=== PATIENT | female | born 1965 | race Caucasian/White ===

== ENCOUNTER 2018-04-01 09:43 | Observation (INO) ==
[2018-04-01] MEDS ORDERED: Ondansetron 4 MG/2 ML VIAL IVP ONE (09:53)
--- NOTE | 2018-04-01 09:55 | Emergency Department Note ---
Disposition Clinical Impression: Diabetic ketosis, Elevated lactic acid level, Metabolic acidosis Proteinuria Qualifiers: Proteinuria type: unspecified Qualified Code(s): R80.9 - Proteinuria, unspecified Leukocytosis Qualifiers: Leukocytosis type: unspecified Qualified Code(s): D72.829 - Elevated white blood cell count, unspecified Disposition: Admitted As Inpatient Condition: Fair Referrals: NONE,PCP [Primary Care Provider] - Forms: ED Satisfaction Letter Time of Disposition: 13:34 Abdominal Pain HPI - General Time Seen by Provider: 04/01/18 09:47 Source: patient, family, EMS Mode of arrival: EMS Limitations: no limitations Nursing Notes Reviewed: Yes Vital Signs Reviewed: Yes - History of Present Illness HPI Narrative: Patient presents to the ED via EMS and was seen and evaluated immediately upon arrival. Patient called EMS today because of hyperglycemia. States that she saw her primary care physician 2 days ago who changed her insulin regimen and also added a medication to help suppress her appetite, which family members states is strange because the patient is already very underweight. Basically since Thursday she has had fairly significant hyperglycemia, which is unusual for her. She is also been vomiting and having diffuse abdominal pain. Denies any fevers, but family states she has been hot. No chest pain or shortness of breath. No headaches or changes in vision. No known diarrhea. Unknown if she is not any urinary changes. No rashes. 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 Pain Scale: 0 - Related Data Home Medications Medication Instructions Recorded Confirmed Levothyroxine [Synthroid] 50 mcg PO QAM 06/03/15 04/01/18 Melatonin 5 mg PO HS 06/03/15 04/01/18 Metoprolol [Lopressor] 25 mg PO BID 06/03/15 04/01/18 Simvastatin [Zocor] 20 mg PO HS 06/03/15 04/01/18 Buprenorphine HCl/Naloxone HCl 1 each SL BID 06/18/15 04/01/18 [Suboxone 8 mg-2 mg Sl Film] Escitalopram [Lexapro] 10 mg PO DAILY 04/01/18 04/01/18 Gabapentin [Neurontin] 300 mg PO DAILY 04/01/18 04/01/18 Insulin ASPART [NovoLOG] 15 unit SQ TIDWM 04/01/18 04/01/18 Insulin Degludec/Liraglutide 20 unit SQ DAILY 04/01/18 04/01/18 [Xultophy 100 Unit-3.6 mg/ml] Lisinopril [Zestril] 5 mg PO DAILY 04/01/18 04/01/18 Metformin HCl [Glucophage] 1,000 mg PO BID 04/01/18 04/01/18 Omeprazole [PriLOSEC] 20 mg PO DAILY 04/01/18 04/01/18 Allergies Allergy/AdvReac Type Severity Reaction Status Date / Time codeine Allergy Hives Verified 11/04/16 10:39 ciprofloxacin [From Cipro] AdvReac Vomiting Verified 11/04/16 10:39 ibuprofen [From Motrin] AdvReac Nausea Verified 11/04/16 10:39 naproxen AdvReac Nausea Verified 11/04/16 10:39 tramadol AdvReac Vomiting Verified 11/04/16 10:39 Review of Systems: As reviewed in the HPI. All other systems reviewed are negative or normal. Abdominal Pain PMH - Past Medical History Medical history: Reports: diabetes, GERD, hyperlipidemia, hypertension Female Surgical History: Reports: , cholecystectomy Psychiatric history: Reports: anxiety, depression - Social History Smoking status: Current every day smoker Alcohol use: Reports: none Drug use: Reports: none Physical Exam - General Limitations: no limitations General appearance: alert, cachectic, other (vomiting) - Head Head exam: atraumatic, normocephalic, normal inspection - Eye Eye exam: Present: normal appearance, PERRL, EOMI - ENT ENT exam: mucous membranes dry - Chest Chest inspection: Present: normal inspection, symmetric chest wall rise - Respiratory Respiratory exam: Present: normal lung sounds bilaterally - Cardiovascular Cardiovascular exam: Present: regular rate, normal rhythm, normal heart sounds - Abdominal Exam Abdominal exam: Present: soft, Non-Tender, other (rolling around on bed, moaning c/o n/v and abd pain). Absent: tenderness, distention, guarding, rebound Abdominal tenderness: Present: epigastrium, moderate, severe - Extremities Exam Extremities exam: Present: normal inspection, full ROM. Absent: tenderness, pedal edema - Neurological Exam Neurological exam: Present: alert, oriented X3 - Psychiatric Psychiatric exam: Present: anxious - Skin Skin exam: Present: warm, dry, intact, normal color Course Course Narrative: Patient presenting with likely DKA, however, is having significant abdominal pain. It seems to be pain out of proportion. Check labs including lipase and hepatic panel, as well as DKA labs. If lactic acid is elevated. We will get a CT with IV contrast of abdomen and pelvis to rule out mesenteric ischemia - Reevaluation(s) Reevaluation #1: Patient has a significant leukocytosis and elevated lactic acid, but her VBG patient does not show acidosis. Further raises the concern over intra- abdominal pathology. Her creatinine is not back yet, but we will go ahead and order a CT with IV contrast to rule out mesenteric ischemia. Patient will be admitted to the hospital and has already received IV fluids and will continue to receive this for her HHS. 11:11 - lab called and he states that the chemistry machine is down, so we will have a delayed creatinine response. Due to the patient's presentation and elevated lactic acid, abdominal pain and vomiting. We will go ahead and proceed with CT of abdomen and pelvis with IV contrast. Time: 10:57 Reevaluation #2: Patient's renal function was normal. Her potassium was slightly low, so we will replace that before starting an insulin drip. Patient does meet some of the criteria for DKA as she does have an elevated anion gap, hyperglycemia and elevated serum and urine ketones. However, she is not acidotic and her bicarbonate is normal. We will start her on insulin drip. She was also hypochloremic, so we will use normal saline and will switch to D5 normal saline once her blood sugar drops below 250. CT of abdomen and pelvis did not show any mesenteric ischemia and likely her abdominal pain is coming from her DKA. AG is 17, delta-delta is 5. Very strange to have elevated BHB but normal bicarb and normal pH. Certainly could have a mixed picture but will treat as DKA for now. Repeat LA ordered. Vital Signs Temperature 98.5 F 04/01/18 09:46 Pulse Rate 72 04/01/18 09:46 Respiratory Rate 18 04/01/18 09:46 Blood Pressure 153/92 04/01/18 09:46 O2 Sat by Pulse Oximetry 96 04/01/18 09:46 Temperature 98.5 F 04/01/18 09:46 Pulse Rate 72 04/01/18 09:46 Respiratory Rate 18 04/01/18 09:46 Blood Pressure 153/92 04/01/18 09:46 O2 Sat by Pulse Oximetry 96 04/01/18 09:46 Oxygen Delivery Oxygen Delivery Room Air Abdominal Pain - Medical Records Medical records reviewed: Yes I reviewed the patient's medical records. - Lab Data Lab results reviewed: Yes I reviewed the patient's lab results. Result diagrams: 04/01/18 10:06 04/01/18 10:06 Lab Results 04/01/18 04/01/18 04/01/18 Range/Units 10:06 10:06 10:06 WBC 22.0 H (4.3-11.1) K/mcL RBC 5.18 H (3.82-4.97) M/mcL Hgb 17.2 H (11.5-15.4) g/dL Hct 48.3 H (35.3-44.9) % MCV 93.2 (83.0-100.0) fL MCH 33.2 (28.0-33.3) pg MCHC 35.6 H (31.6-35.5) g/dL RDW 11.8 (11.5-14.5) % Plt Count 144 (140-400) K/mcL MPV 10.7 (9.4-12.4) fL Immature Gran % 0.8 (0-4) % Seg Neutrophils % 83.2 % Lymphocytes % 11.0 % Monocytes % 4.7 % Eosinophils % 0.0 % Basophils % 0.3 % Neutrophils # 18.3 H (1.6-8.9) K/mcL Lymphocytes # 2.4 (0.6-4.6) K/mcL Monocytes # 1.0 (0.0-1.3) K/mcL Eosinophils # 0.0 (0.0-0.6) K/mcL Basophils # 0.1 (0.0-0.2) K/mcL VBG pH (7.32-7.42) pH Units VBG pCO2 (41-51) mmHg VBG pO2 (25-50) mmHg VBG HCO3 (21-27) mEq/L Sodium 136 (136-145) mEq/L Potassium 3.8 (3.5-5.1) mEq/L Chloride 96 L (98-107) mEq/L Carbon Dioxide 23 (23-29) mEq/L BUN 21 H (6-20) mg/dL Creatinine 0.65 (0.60-1.20) mg/dL Est GFR ( Amer) > 60 (> 60) Est GFR (Non-Af Amer) > 60 (> 60) BUN/Creatinine Ratio 32 H (6-26) Glucose 360 H (70-105) mg/dL Est Mean Plasma Glucose 407 mg/dl Hemoglobin A1c 15.8 H ( - 5.6) % Calculated Osmolality 300 (280-300) Lactic Acid (0.5-2.2) mmol/L Calcium 10.4 H (8.6-10.3) mg/dL Total Bilirubin 0.7 (0.3-1.0) mg/dL Direct Bilirubin 0.2 (0.0-0.2) mg/dL Indirect Bilirubin 0.5 (0.0-1.2) mg/dL AST 46 H (13-39) Units/L ALT 52 (7-52) Units/L Alkaline Phosphatase 120 H (34-104) Units/L Serum Total Protein 7.8 (6.4-8.9) g/dL Albumin 4.3 (3.5-5.7) g/dL Globulin 3.5 (2.4-3.5) g/dL Albumin/Globulin Ratio 1.2 (1.1-2.2) Lipase 10 L (11-82) Units/L Beta-Hydroxybutyric Acd (0.02-0.27) mmol/L Urine Color (Yellow) Urine Clarity (Clear) Urine pH (5.0-8.0) pH Units Ur Specific [place] (1.010-1.025) Urine Protein (Neg-Trace) mg/dL Urine Glucose (UA) (Normal) mg/dL Urine Ketones (Negative) mg/dL Urine Blood (Negative) Urine Nitrite (Negative) Urine Bilirubin (Negative) Urine Urobilinogen (Normal) mg/dL Ur Leukocyte Esterase (Negative) Urine Microscopic RBC (0-3) per hpf Urine Microscopic WBC (0-3) per hpf Ur Squamous Epith Cells (None-Few) per lpf Urine Bacteria (None-Few) per hpf Hyaline Casts (None-Few) per lpf Urine Yeast (None Seen) per hpf Ur Culture Indicated? (NO) 04/01/18 04/01/18 04/01/18 Range/Units 10:06 10:06 10:20 WBC (4.3-11.1) K/mcL RBC (3.82-4.97) M/mcL Hgb (11.5-15.4) g/dL Hct (35.3-44.9) % MCV (83.0-100.0) fL MCH (28.0-33.3) pg MCHC (31.6-35.5) g/dL RDW (11.5-14.5) % Plt Count (140-400) K/mcL MPV (9.4-12.4) fL Immature Gran % (0-4) % Seg Neutrophils % % Lymphocytes % % Monocytes % % Eosinophils % % Basophils % % Neutrophils # (1.6-8.9) K/mcL Lymphocytes # (0.6-4.6) K/mcL Monocytes # (0.0-1.3) K/mcL Eosinophils # (0.0-0.6) K/mcL Basophils # (0.0-0.2) K/mcL VBG pH 7.42 (7.32-7.42) pH Units VBG pCO2 37 L (41-51) mmHg VBG pO2 54 H (25-50) mmHg VBG HCO3 24 (21-27) mEq/L Sodium (136-145) mEq/L Potassium (3.5-5.1) mEq/L Chloride (98-107) mEq/L Carbon Dioxide (23-29) mEq/L BUN (6-20) mg/dL Creatinine (0.60-1.20) mg/dL Est GFR ( Amer) (> 60) Est GFR (Non-Af Amer) (> 60) BUN/Creatinine Ratio (6-26) Glucose (70-105) mg/dL Est Mean Plasma Glucose mg/dl Hemoglobin A1c ( - 5.6) % Calculated Osmolality (280-300) Lactic Acid 2.4 H (0.5-2.2) mmol/L Calcium (8.6-10.3) mg/dL Total Bilirubin (0.3-1.0) mg/dL Direct Bilirubin (0.0-0.2) mg/dL Indirect Bilirubin (0.0-1.2) mg/dL AST (13-39) Units/L ALT (7-52) Units/L Alkaline Phosphatase (34-104) Units/L Serum Total Protein (6.4-8.9) g/dL Albumin (3.5-5.7) g/dL Globulin (2.4-3.5) g/dL Albumin/Globulin Ratio (1.1-2.2) Lipase (11-82) Units/L Beta-Hydroxybutyric Acd > 2.00 H (0.02-0.27) mmol/L Urine Color (Yellow) Urine Clarity (Clear) Urine pH (5.0-8.0) pH Units Ur Specific [place] (1.010-1.025) Urine Protein (Neg-Trace) mg/dL Urine Glucose (UA) (Normal) mg/dL Urine Ketones (Negative) mg/dL Urine Blood (Negative) Urine Nitrite (Negative) Urine Bilirubin (Negative) Urine Urobilinogen (Normal) mg/dL Ur Leukocyte Esterase (Negative) Urine Microscopic RBC (0-3) per hpf Urine Microscopic WBC (0-3) per hpf Ur Squamous Epith Cells (None-Few) per lpf Urine Bacteria (None-Few) per hpf Hyaline Casts (None-Few) per lpf Urine Yeast (None Seen) per hpf Ur Culture Indicated? (NO) 04/01/18 Range/Units 11:00 WBC (4.3-11.1) K/mcL RBC (3.82-4.97) M/mcL Hgb (11.5-15.4) g/dL Hct (35.3-44.9) % MCV (83.0-100.0) fL MCH (28.0-33.3) pg MCHC (31.6-35.5) g/dL RDW (11.5-14.5) % Plt Count (140-400) K/mcL MPV (9.4-12.4) fL Immature Gran % (0-4) % Seg Neutrophils % % Lymphocytes % % Monocytes % % Eosinophils % % Basophils % % Neutrophils # (1.6-8.9) K/mcL Lymphocytes # (0.6-4.6) K/mcL Monocytes # (0.0-1.3) K/mcL Eosinophils # (0.0-0.6) K/mcL Basophils # (0.0-0.2) K/mcL VBG pH (7.32-7.42) pH Units VBG pCO2 (41-51) mmHg VBG pO2 (25-50) mmHg VBG HCO3 (21-27) mEq/L Sodium (136-145) mEq/L Potassium (3.5-5.1) mEq/L Chloride (98-107) mEq/L Carbon Dioxide (23-29) mEq/L BUN (6-20) mg/dL Creatinine (0.60-1.20) mg/dL Est GFR ( Amer) (> 60) Est GFR (Non-Af Amer) (> 60) BUN/Creatinine Ratio (6-26) Glucose (70-105) mg/dL Est Mean Plasma Glucose mg/dl Hemoglobin A1c ( - 5.6) % Calculated Osmolality (280-300) Lactic Acid (0.5-2.2) mmol/L Calcium (8.6-10.3) mg/dL Total Bilirubin (0.3-1.0) mg/dL Direct Bilirubin (0.0-0.2) mg/dL Indirect Bilirubin (0.0-1.2) mg/dL AST (13-39) Units/L ALT (7-52) Units/L Alkaline Phosphatase (34-104) Units/L Serum Total Protein (6.4-8.9) g/dL Albumin (3.5-5.7) g/dL Globulin (2.4-3.5) g/dL Albumin/Globulin Ratio (1.1-2.2) Lipase (11-82) Units/L Beta-Hydroxybutyric Acd (0.02-0.27) mmol/L Urine Color Yellow (Yellow) Urine Clarity Clear (Clear) Urine pH 6.0 (5.0-8.0) pH Units Ur Specific [place] > 1.030 H (1.010-1.025) Urine Protein 100 H (Neg-Trace) mg/dL Urine Glucose (UA) >=1000 H (Normal) mg/dL Urine Ketones 80 H (Negative) mg/dL Urine Blood Negative (Negative) Urine Nitrite Negative (Negative) Urine Bilirubin Negative (Negative) Urine Urobilinogen Normal (Normal) mg/dL Ur Leukocyte Esterase Negative (Negative) Urine Microscopic RBC 0-3 (0-3) per hpf Urine Microscopic WBC 3-5 H (0-3) per hpf Ur Squamous Epith Cells Many H (None-Few) per lpf Urine Bacteria None Seen (None-Few) per hpf Hyaline Casts None Seen (None-Few) per lpf Urine Yeast Few H (None Seen) per hpf Ur Culture Indicated? NO (NO) - Radiology Data Radiology results reviewed: Yes I reviewed the patient's radiology results. - EKG Data EKG attestation: Yes I reviewed and interpreted this EKG. EKG results narrative: EKG shows sinus rhythm with occasional PVC, normal rate and rhythm, normal intervals, no ischemic changes S.B.Luis A. - Rusty.Luis Situation: Demographics, MOA Background: Presenting Complaint, Relevant PMH, Meds, & Allergies Assessment: Vital Signs, Course and respsone to treatment, Exam Concerns, Patient/Family Expectation, Pertinant Lab Results, Outstanding Labs Recommendation: Barrier(s) to disposition, Recommendation based on pending studies, treatments, or consults S.B.Carlo Report Given to: Dr. Maloney accepted the patient for admission. [place] Repor Time: 14:10
[2018-04-01] MEDS ORDERED: 0.9 % Sodium Chloride 2,000 ML ONE (09:57)
[2018-04-01] MEDS: 0.9 % Sodium Chloride 1,000 ML IVC SCH ×3 (10:05→22:09)
[2018-04-01 10:23] LABS: VBG HCO3 24 mEq/L (21-27); VBG PCO2 37 mmHg (41-51); VBG PH 7.42 pH Units (7.32-7.42); VBG PO2 54 mmHg (25-50)
[2018-04-01 10:29] LABS: Basophils # 0.1 K/mcL (0.0-0.2); Basophils % 0.3 %; Hematocrit 48.3 % (35.3-44.9); Hemoglobin 17.2 g/dL (11.5-15.4); Immature Granulocytes % 0.8 % (0-4); Lymphocytes # 2.4 K/mcL (0.6-4.6); Mean Corpuscular HGB Conc 35.6 g/dL (31.6-35.5); Mean Corpuscular Hemoglobin 33.2 pg (28.0-33.3); Mean Corpuscular Volume 93.2 fL (83.0-100.0); Mean Platelet Volume 10.7 fL (9.4-12.4); Monocytes % 4.7 %; Neutrophils # 18.3 K/mcL (1.6-8.9); Platelet Count 144 K/mcL (140-400); Red Blood Count 5.18 M/mcL (3.82-4.97); Red Cell Distribution Width 11.8 % (11.5-14.5); Segmented Neutrophils % 83.2 %
--- NOTE | 2018-04-01 10:48 | Emergency Department Note ---
Disposition Clinical Impression: Diabetic ketosis, Elevated lactic acid level, Metabolic acidosis Proteinuria Qualifiers: Proteinuria type: unspecified Qualified Code(s): R80.9 - Proteinuria, unspecified Leukocytosis Qualifiers: Leukocytosis type: unspecified Qualified Code(s): D72.829 - Elevated white blood cell count, unspecified Disposition: Admitted As Inpatient Condition: Fair General Adult HPI - General Chief complaint: ED Nausea/Vomiting/Diarrhea Stated complaint: Hyperglycemia Time Seen by Provider: 04/01/18 09:47 Source: patient, EMS Limitations: no limitations - History of Present Illness Pain Scale: 0 - Related Data Home Medications Medication Instructions Recorded Confirmed Levothyroxine [Synthroid] 50 mcg PO QAM 06/03/15 04/01/18 Melatonin 5 mg PO HS 06/03/15 04/01/18 Metoprolol [Lopressor] 25 mg PO BID 06/03/15 04/01/18 Simvastatin [Zocor] 20 mg PO HS 06/03/15 04/01/18 Buprenorphine HCl/Naloxone HCl 1 each SL BID 06/18/15 04/01/18 [Suboxone 8 mg-2 mg Sl Film] Escitalopram [Lexapro] 10 mg PO DAILY 04/01/18 04/01/18 Gabapentin [Neurontin] 300 mg PO DAILY 04/01/18 04/01/18 Insulin ASPART [NovoLOG] 15 unit SQ TIDWM 04/01/18 04/01/18 Insulin Degludec/Liraglutide 20 unit SQ DAILY 04/01/18 04/01/18 [Xultophy 100 Unit-3.6 mg/ml] Lisinopril [Zestril] 5 mg PO DAILY 04/01/18 04/01/18 Metformin HCl [Glucophage] 1,000 mg PO BID 04/01/18 04/01/18 Omeprazole [PriLOSEC] 20 mg PO DAILY 04/01/18 04/01/18 Allergies Allergy/AdvReac Type Severity Reaction Status Date / Time codeine Allergy Hives Verified 11/04/16 10:39 ciprofloxacin [From Cipro] AdvReac Vomiting Verified 11/04/16 10:39 ibuprofen [From Motrin] AdvReac Nausea Verified 11/04/16 10:39 naproxen AdvReac Nausea Verified 11/04/16 10:39 tramadol AdvReac Vomiting Verified 11/04/16 10:39 Past Medical History - Past Medical History Medical history: Reports: diabetes, GERD, hyperlipidemia, hypertension Surgical history: Reports: cholecystectomy, hysterectomy Psychiatric history: Reports: anxiety, depression - Social History Smoking Status: Current every day smoker Smokeless Tobacco Status: No Alcohol use: Reports: none Drug use: Reports: none Physical Exam - General Limitations: no limitations General appearance: alert, in no apparent distress Course Vital Signs Temperature 98.5 F 04/01/18 09:46 Pulse Rate 72 04/01/18 09:46 Respiratory Rate 18 04/01/18 09:46 Blood Pressure 153/92 04/01/18 09:46 O2 Sat by Pulse Oximetry 96 04/01/18 09:46 Temperature 98.9 F 04/01/18 15:52 Pulse Rate 68 04/01/18 15:52 Respiratory Rate 16 04/01/18 15:52 Blood Pressure 143/69 04/01/18 15:52 O2 Sat by Pulse Oximetry 95 04/01/18 15:52 Oxygen Delivery Oxygen Delivery Room Air Medical Decision Making - Lab Data Result diagrams: 04/01/18 10:06 04/01/18 17:44 Lab Results 04/01/18 04/01/18 04/01/18 Range/Units 10:06 10:06 10:06 WBC 22.0 H (4.3-11.1) K/mcL RBC 5.18 H (3.82-4.97) M/mcL Hgb 17.2 H (11.5-15.4) g/dL Hct 48.3 H (35.3-44.9) % MCV 93.2 (83.0-100.0) fL MCH 33.2 (28.0-33.3) pg MCHC 35.6 H (31.6-35.5) g/dL RDW 11.8 (11.5-14.5) % Plt Count 144 (140-400) K/mcL MPV 10.7 (9.4-12.4) fL Immature Gran % 0.8 (0-4) % Seg Neutrophils % 83.2 % Lymphocytes % 11.0 % Monocytes % 4.7 % Eosinophils % 0.0 % Basophils % 0.3 % Neutrophils # 18.3 H (1.6-8.9) K/mcL Lymphocytes # 2.4 (0.6-4.6) K/mcL Monocytes # 1.0 (0.0-1.3) K/mcL Eosinophils # 0.0 (0.0-0.6) K/mcL Basophils # 0.1 (0.0-0.2) K/mcL VBG pH (7.32-7.42) pH Units VBG pCO2 (41-51) mmHg VBG pO2 (25-50) mmHg VBG HCO3 (21-27) mEq/L Sodium 136 (136-145) mEq/L Potassium 3.8 (3.5-5.1) mEq/L Chloride 96 L (98-107) mEq/L Carbon Dioxide 23 (23-29) mEq/L BUN 21 H (6-20) mg/dL Creatinine 0.65 (0.60-1.20) mg/dL Est GFR ( Amer) > 60 (> 60) Est GFR (Non-Af Amer) > 60 (> 60) BUN/Creatinine Ratio 32 H (6-26) Glucose 360 H (70-105) mg/dL Est Mean Plasma Glucose 407 mg/dl Hemoglobin A1c 15.8 H ( - 5.6) % Serum Osmolality (280-300) mOsm/kg Calculated Osmolality 300 (280-300) Lactic Acid (0.5-2.2) mmol/L Calcium 10.4 H (8.6-10.3) mg/dL Total Bilirubin 0.7 (0.3-1.0) mg/dL Direct Bilirubin 0.2 (0.0-0.2) mg/dL Indirect Bilirubin 0.5 (0.0-1.2) mg/dL AST 46 H (13-39) Units/L ALT 52 (7-52) Units/L Alkaline Phosphatase 120 H (34-104) Units/L Serum Total Protein 7.8 (6.4-8.9) g/dL Albumin 4.3 (3.5-5.7) g/dL Globulin 3.5 (2.4-3.5) g/dL Albumin/Globulin Ratio 1.2 (1.1-2.2) Lipase 10 L (11-82) Units/L Beta-Hydroxybutyric Acd (0.02-0.27) mmol/L Urine Color (Yellow) Urine Clarity (Clear) Urine pH (5.0-8.0) pH Units Ur Specific [place] (1.010-1.025) Urine Protein (Neg-Trace) mg/dL Urine Glucose (UA) (Normal) mg/dL Urine Ketones (Negative) mg/dL Urine Blood (Negative) Urine Nitrite (Negative) Urine Bilirubin (Negative) Urine Urobilinogen (Normal) mg/dL Ur Leukocyte Esterase (Negative) Urine Microscopic RBC (0-3) per hpf Urine Microscopic WBC (0-3) per hpf Ur Squamous Epith Cells (None-Few) per lpf Urine Bacteria (None-Few) per hpf Hyaline Casts (None-Few) per lpf Urine Yeast (None Seen) per hpf Ur Culture Indicated? (NO) 04/01/18 04/01/18 04/01/18 Range/Units 10:06 10:06 10:06 WBC (4.3-11.1) K/mcL RBC (3.82-4.97) M/mcL Hgb (11.5-15.4) g/dL Hct (35.3-44.9) % MCV (83.0-100.0) fL MCH (28.0-33.3) pg MCHC (31.6-35.5) g/dL RDW (11.5-14.5) % Plt Count (140-400) K/mcL MPV (9.4-12.4) fL Immature Gran % (0-4) % Seg Neutrophils % % Lymphocytes % % Monocytes % % Eosinophils % % Basophils % % Neutrophils # (1.6-8.9) K/mcL Lymphocytes # (0.6-4.6) K/mcL Monocytes # (0.0-1.3) K/mcL Eosinophils # (0.0-0.6) K/mcL Basophils # (0.0-0.2) K/mcL VBG pH (7.32-7.42) pH Units VBG pCO2 (41-51) mmHg VBG pO2 (25-50) mmHg VBG HCO3 (21-27) mEq/L Sodium (136-145) mEq/L Potassium (3.5-5.1) mEq/L Chloride (98-107) mEq/L Carbon Dioxide (23-29) mEq/L BUN (6-20) mg/dL Creatinine (0.60-1.20) mg/dL Est GFR ( Amer) (> 60) Est GFR (Non-Af Amer) (> 60) BUN/Creatinine Ratio (6-26) Glucose (70-105) mg/dL Est Mean Plasma Glucose mg/dl Hemoglobin A1c ( - 5.6) % Serum Osmolality 314 H (280-300) mOsm/kg Calculated Osmolality (280-300) Lactic Acid 2.4 H (0.5-2.2) mmol/L Calcium (8.6-10.3) mg/dL Total Bilirubin (0.3-1.0) mg/dL Direct Bilirubin (0.0-0.2) mg/dL Indirect Bilirubin (0.0-1.2) mg/dL AST (13-39) Units/L ALT (7-52) Units/L Alkaline Phosphatase (34-104) Units/L Serum Total Protein (6.4-8.9) g/dL Albumin (3.5-5.7) g/dL Globulin (2.4-3.5) g/dL Albumin/Globulin Ratio (1.1-2.2) Lipase (11-82) Units/L Beta-Hydroxybutyric Acd > 2.00 H (0.02-0.27) mmol/L Urine Color (Yellow) Urine Clarity (Clear) Urine pH (5.0-8.0) pH Units Ur Specific [place] (1.010-1.025) Urine Protein (Neg-Trace) mg/dL Urine Glucose (UA) (Normal) mg/dL Urine Ketones (Negative) mg/dL Urine Blood (Negative) Urine Nitrite (Negative) Urine Bilirubin (Negative) Urine Urobilinogen (Normal) mg/dL Ur Leukocyte Esterase (Negative) Urine Microscopic RBC (0-3) per hpf Urine Microscopic WBC (0-3) per hpf Ur Squamous Epith Cells (None-Few) per lpf Urine Bacteria (None-Few) per hpf Hyaline Casts (None-Few) per lpf Urine Yeast (None Seen) per hpf Ur Culture Indicated? (NO) 04/01/18 04/01/18 04/01/18 Range/Units 10:20 11:00 14:01 WBC (4.3-11.1) K/mcL RBC (3.82-4.97) M/mcL Hgb (11.5-15.4) g/dL Hct (35.3-44.9) % MCV (83.0-100.0) fL MCH (28.0-33.3) pg MCHC (31.6-35.5) g/dL RDW (11.5-14.5) % Plt Count (140-400) K/mcL MPV (9.4-12.4) fL Immature Gran % (0-4) % Seg Neutrophils % % Lymphocytes % % Monocytes % % Eosinophils % % Basophils % % Neutrophils # (1.6-8.9) K/mcL Lymphocytes # (0.6-4.6) K/mcL Monocytes # (0.0-1.3) K/mcL Eosinophils # (0.0-0.6) K/mcL Basophils # (0.0-0.2) K/mcL VBG pH 7.42 (7.32-7.42) pH Units VBG pCO2 37 L (41-51) mmHg VBG pO2 54 H (25-50) mmHg VBG HCO3 24 (21-27) mEq/L Sodium (136-145) mEq/L Potassium (3.5-5.1) mEq/L Chloride (98-107) mEq/L Carbon Dioxide (23-29) mEq/L BUN (6-20) mg/dL Creatinine (0.60-1.20) mg/dL Est GFR ( Amer) (> 60) Est GFR (Non-Af Amer) (> 60) BUN/Creatinine Ratio (6-26) Glucose (70-105) mg/dL Est Mean Plasma Glucose mg/dl Hemoglobin A1c ( - 5.6) % Serum Osmolality (280-300) mOsm/kg Calculated Osmolality (280-300) Lactic Acid 1.0 (0.5-2.2) mmol/L Calcium (8.6-10.3) mg/dL Total Bilirubin (0.3-1.0) mg/dL Direct Bilirubin (0.0-0.2) mg/dL Indirect Bilirubin (0.0-1.2) mg/dL AST (13-39) Units/L ALT (7-52) Units/L Alkaline Phosphatase (34-104) Units/L Serum Total Protein (6.4-8.9) g/dL Albumin (3.5-5.7) g/dL Globulin (2.4-3.5) g/dL Albumin/Globulin Ratio (1.1-2.2) Lipase (11-82) Units/L Beta-Hydroxybutyric Acd (0.02-0.27) mmol/L Urine Color Yellow (Yellow) Urine Clarity Clear (Clear) Urine pH 6.0 (5.0-8.0) pH Units Ur Specific Glade > 1.030 H (1.010-1.025) Urine Protein 100 H (Neg-Trace) mg/dL Urine Glucose (UA) >=1000 H (Normal) mg/dL Urine Ketones 80 H (Negative) mg/dL Urine Blood Negative (Negative) Urine Nitrite Negative (Negative) Urine Bilirubin Negative (Negative) Urine Urobilinogen Normal (Normal) mg/dL Ur Leukocyte Esterase Negative (Negative) Urine Microscopic RBC 0-3 (0-3) per hpf Urine Microscopic WBC 3-5 H (0-3) per hpf Ur Squamous Epith Cells Many H (None-Few) per lpf Urine Bacteria None Seen (None-Few) per hpf Hyaline Casts None Seen (None-Few) per lpf Urine Yeast Few H (None Seen) per hpf Ur Culture Indicated? NO (NO) Attestation Statement - Attestation Attestation: I examined this patient and my medical decision-making was reviewed with the [employer]PER/PA/Advanced Practice Nurse/Resident Physician. I agree with the documented findings, disposition and treatment plan as described except to the extent set forth below. I did see the patient is spoke with her and examined her and she does have abdominal pain for the last several days. It is generalized. Did have pain even with rolling over in bed. On my exam the abdomen is soft with minimal generalized discomfort but subjectively she has more discomfort. Blood sugar elevated at home but she does not know exact number. No confusion. Social history: Is here with her sister. Does have significant leukocytosis and elevated lactate and electrolytes as well as blood sugar and liver function tests are pending. Abdominal imaging will be ordered after creatinine result returns. 1048 I did review the EKG showing normal sinus rhythm with a rate of 81 without acute ischemic change 1054
[2018-04-01] MEDS ORDERED: Isovue-370 500 ML INFUS..BTL IV ONE (10:50)
[2018-04-01] MEDS ORDERED: 0.9 % Sodium Chloride 1,000 ML IVC ONE (11:02)
[2018-04-01 11:19] LABS: Estimated Average Glucose 407 mg/dl; Hemoglobin A1C 15.8 %
[2018-04-01 11:31] LABS: Bilirubin,Urine Negative (Negative); Blood,Urine Negative (Negative); Clarity,Urine Clear (Clear); Color,Urine Yellow (Yellow); Glucose,Urine (UA) >=1000 mg/dL (Normal); Ketones,Urine 80 mg/dL (Negative); Leukocyte Esterase,Urine Negative (Negative); Nitrite,Urine Negative (Negative); Protein,Urine 100 mg/dL (Neg-Trace); Specific Gravity,Urine > 1.030 (1.010-1.025); Urobilinogen,Urine Normal (Normal)
[2018-04-01 11:32] LABS: Bacteria,Urine None Seen per hpf (None-Few); Hyaline Casts,Urine None Seen per lpf (None-Few); RBC,Urine 0-3 per hpf (0-3); Squamous Epithelial Cell,Urine Many per lpf (None-Few)
[2018-04-01 11:48] LABS: Yeast,Urine Few per hpf (None Seen)
[2018-04-01 11:56] LABS: Alanine Aminotransferase 52 Units/L (7-52); Albumin 4.3 g/dL (3.5-5.7); Albumin/Globulin Ratio 1.2 (1.1-2.2); Aspartate Amino Transferase 46 Units/L (13-39); Bilirubin,Direct 0.2 mg/dL (0.0-0.2); Bilirubin,Indirect 0.5 mg/dL (0.0-1.2); Bilirubin,Total 0.7 mg/dL (0.3-1.0); Blood Urea Nitrogen 21 mg/dL (6-20); Calcium 10.4 mg/dL (8.6-10.3); Carbon Dioxide 23 mEq/L (23-29); Chloride 96 mEq/L (98-107); Globulin 3.5 g/dL (2.4-3.5); Glucose 360 mg/dL (70-105); Osmolality,Calculated 300 (280-300); Potassium 3.8 mEq/L (3.5-5.1); Sodium 136 mEq/L (136-145); Total Protein 7.8 g/dL (6.4-8.9)
[2018-04-01] MEDS ORDERED: *HR* Promethazine 25 MG/ML VIAL IVP ONE (12:19)
[2018-04-01] MEDS ORDERED: *HR* Promethazine 25 MG/ML VIAL ONE (12:20)
[2018-04-01 12:27] LABS: Alkaline Phosphatase 120 Units/L (34-104); BUN/Creatinine Ratio 32 (6-26); eGFR For African Americans > 60 (> 60); eGFR For Non-African Americans > 60 (> 60)
[2018-04-01 12:28] LABS: Lipase 10 Units/L (11-82)
[2018-04-01] MEDS ORDERED: Potassium Chloride 40 MEQ, Lidocaine 1% 2 ML in D5% in Water 500 ML IVPB ONE (13:10)
[2018-04-01] MEDS ORDERED: *HR* Dextrose 50 % in Water (Syg) 50 ML SYRINGE IVP PRN ×2 (13:11→17:18)
[2018-04-01] MEDS ORDERED: 0.9 % Sodium Chloride w KCl 20 MEQ/1,000 ML MLS IVC SCH ×3 (13:15→17:30)
[2018-04-01] MEDS ORDERED: D5% in 0.9% NACL w KCl 20 MEQ/1,000 ML MLS IVC SCH (13:15)
[2018-04-01] MEDS ORDERED: Insulin Human Regular 100 UNIT in 0.9 % Sodium Chloride 100 ML IVC SCH ×2 (13:15→17:30)
[2018-04-01] MEDS ORDERED: Naloxone 0.4 MG/ML INJ IVP PRN (15:28)
--- NOTE | 2018-04-01 16:55 | Internal Med History&Physical ---
<Hao Brown - Last Filed: 04/01/18 17:55> Date of Encounter: 04/01/18 Time of Encounter: 16:43 Internal Medicine - H&P: HPI Chief complaint: abdominal pain Admitted From: Emergency Dept Plans for Post Hospital Care: Home History of present illness: Ms. Mathews is a 52 year old female, with past medical history of diabetes, who presents today complaining of diffuse abdominal pain and headache. Pt rates both MARAVILLA pain and abd pain as 9/10. Pt states abd and MARAVILLA started yesterday around the same time and were originally an 8/10. MARAVILLA made worse by light. Pain accompanied by vomiting, diarrhea, and painful urination. Denied any hematemesis , melena, hematochezia, or hematuria. Denies any chest pain or shortness of breath. 2 weeks ago pt was seen by a provider at [facility] who increased pt's insulin regimen to Novolog 15 units TID with meals, and added Xultophy as well. Reported pt has not seen a provider previous to that visit in quite some time due to pt substance abuse and suboxone. Past Med Surg Social Fam HX - Past Medical History Medical history: diabetes, GERD, hyperlipidemia, hypertension Additional medical history: liver problems Psychiatric history: anxiety, depression - Past Surgical History Surgical History: , cholecystectomy, hysterectomy Additional surgical history: tubal ligation, rt foot surgery - Social History Smoking Status: Current every day smoker Packs per day: 1/2 Smokeless Tobacco Status: No Alcohol use: none Drug use: none Current living situation: Home - Independent Activity Level: Independent ambulation - Family History Mother Cause of : Pancreatic Cancer Father Cause of : Staph bacteremia Hx Family Cardiac Disorders: Yes Hx Family Endocrine Disorder: Yes (diabetes ) Sister Hx Family Cardiac Disorders: Yes (CHF) Hx Family Respiratory Disorders: Yes (COPD) Internal Medicine - H&P: Meds Levothyroxine [Synthroid] 50 mcg PO QAM 06/03/15 [History] Melatonin 5 mg PO HS 06/03/15 [History] Metoprolol [Lopressor] 25 mg PO BID 06/03/15 [History] Simvastatin [Zocor] 20 mg PO HS 06/03/15 [History] Buprenorphine HCl/Naloxone HCl [Suboxone 8 mg-2 mg Sl Film] 1 each SL BID [History] Escitalopram [Lexapro] 10 mg PO DAILY 04/01/18 [History] Gabapentin [Neurontin] 300 mg PO DAILY 04/01/18 [History] Insulin ASPART [NovoLOG] 15 unit SQ TIDWM 04/01/18 [History] Insulin Degludec/Liraglutide [Xultophy 100 Unit-3.6 mg/ml] 20 unit SQ DAILY 02/12 [History] Lisinopril [Zestril] 5 mg PO DAILY 04/01/18 [History] Metformin HCl [Glucophage] 1,000 mg PO BID 04/01/18 [History] Omeprazole [PriLOSEC] 20 mg PO DAILY 04/01/18 [History] 3 Allergy/AdvReac Type Severity Reaction Status Date / Time codeine Allergy Hives Verified 11/04/16 10:39 ciprofloxacin [From Cipro] AdvReac Vomiting Verified 11/04/16 10:39 ibuprofen [From Motrin] AdvReac Nausea Verified 11/04/16 10:39 naproxen AdvReac Nausea Verified 11/04/16 10:39 tramadol AdvReac Vomiting Verified 11/04/16 10:39 All Systems PM: A 10-system review of systems was performed and is negative for pertinent findings except as documented above in the HPI. - Constitutional Constitutional: chills, fatigue, fever(s) - EENT Eyes: no blurry vision, no change in vision, no pain Ears: no decreased hearing, no ear pain, no tinnitus Nose, mouth and throat: dry mouth, no bleeding gums, no mouth lesions, no neck mass, no neck pain, no sinus pain, no sore throat - Cardiovascular Cardiovascular ROS IM: edema, no chest pain, no dyspnea, no dyspnea on exertion , no palpitations - Respiratory Respiratory: no cough, no dyspnea, no hemoptysis, no dyspnea on exertion, no wheezing - Gastrointestinal Gastrointestinal: abdominal pain, diarrhea, nausea, vomiting, no hematemesis, no hematochezia, no melena - Genitourinary Genitourinary: dysuria, urinary frequency, no flank pain, no hematuria, no urinary hesitancy, no urinary incontinence - Musculoskeletal Musculoskeletal ROS IM: no arthralgias, no back pain, no joint swelling, no numbness, no tingling - Integumentary Integumentary IM: no erythema, no new lesions, no rash, no unusual bruising - Neurological Neurological ROS: headache(s), no dizziness, no numbness, no vertigo, no weakness - Endocrine Endocrine IM: fatigue, polydipsia, polyphagia, polyuria - Hematologic/Lymphatic Hematologic/Lymphatic: no easy bleeding, no easy bruising, no lymphadenopathy - Constitutional Vitals: Temp Pulse Resp BP Pulse Ox 98.9 F 68 16 143/69 95 04/01/18 15:52 04/01/18 15:52 04/01/18 15:52 04/01/18 15:52 04/01/18 15:52 General appearance: Present: A&O X 3, severe distress, answers questions appropriately Exam: Head: Normocephalic and atraumatic Eyes: PERRL, EOMI, conjunctivae pink, sclerae anicteric Neck: supple, trachea midline, no masses Heart: RRR, +S1, +S2, no murmurs, clicks or rubs noted Lungs: Wheezes noted diffusely, unlabored breathing. No rales, or rhonchi. GI: Abdomen soft, non-distended, diffusely tender to palpation, normoactive bowel sounds. Extremities: Warm, pulses palpable and symmetrical. No edema or cyanosis noted. Neuro: Alert and oriented 3, no focal deficits, no speech difficulty. Skin: Warm, dry, intact. Internal Med - H&P Results - Labs CBC & Chem 7: 04/01/18 10:06 04/01/18 10:06 - Assessment and plan (1) DKA (diabetic ketoacidoses) Current Visit: Yes Status: Acute Assessment and plan: Fluid resuscitation for hypovolemia Insulin drip until anion gap closes Monitor potassium closely and replace as needed Qualifiers: Diabetes mellitus type: type 2 Diabetes mellitus complication detail: without coma Qualified Code(s): E11.10 - Type 2 diabetes mellitus with ketoacidosis without coma (2) Abdominal pain Current Visit: Yes Status: Acute Assessment and plan: likely secondary to DKA, vomiting and diarrhea Tylenol or ibuprofen prn for pain Qualifiers: Abdominal location: generalized Qualified Code(s): R10.84 - Generalized abdominal pain (3) Hypothyroidism Current Visit: Yes Status: Acute Assessment and plan: Continue home synthroid Qualifiers: Hypothyroidism type: unspecified Qualified Code(s): E03.9 - Hypothyroidism , unspecified (4) HTN (hypertension) Current Visit: Yes Status: Acute Assessment and plan: BP currently in 140s systolic Continue to monitor as fluid resuscitation progresses Continue home meds Qualifiers: Hypertension type: essential hypertension Qualified Code(s): I10 - Essential (primary) hypertension (5) DVT prophylaxis Current Visit: Yes Status: Acute Assessment and plan: heparin drip - Time Spent With Patient Total time spent is greater than 50% in coordination of care (as documented) at patient's floor/unit and/or counseling patient: <Emanuel Mars - Last Filed: 04/01/18 19:45> Date of Encounter: 04/01/18 Internal Medicine - H&P: HPI History of present illness: Ms. Mathews is a 52 year old female All Systems PM: A 10-system review of systems was performed and is negative for pertinent findings except as documented above in the HPI. - Constitutional Vitals: Temp Pulse Resp BP Pulse Ox 98.8 F 71 16 135/71 96 04/01/18 19:08 04/01/18 19:08 04/01/18 19:08 04/01/18 19:08 04/01/18 19:08 Internal Med - H&P Results - Labs CBC & Chem 7: 04/01/18 10:06 04/01/18 17:44 Labs: BMP 04/01/18 17:44 Sodium 132 L Potassium 4.0 Chloride 101 Carbon Dioxide 21 L BUN 14 Creatinine 0.54 L Glucose 306 H Calcium 9.0 - Attending Attestation I examined this patient and my medical decision-making was reviewed with the Resident Physician on 04/01/18. I agree with the documented findings, disposition and treatment plan as described except to the extent set forth below. Ms Mathews presented to ED with complaints of abd pain with nausea and vomiting and diarrhea for 2 days. No fever. Some cough. Symptoms related to change in her insulin. Currently she is uncomfortable. She does not answer questions well. Exam alert Mucus membranes dry Heart reg Wheeze heard Abd soft and diffusely tender without peritoneal signs No edema I/P 1. DKA 2. Dehydration Further diagnoses and plan as above. - Assessment and plan (1) DKA (diabetic ketoacidoses) Current Visit: Yes Status: Acute Qualifiers: Diabetes mellitus type: type 2 Diabetes mellitus complication detail: without coma Qualified Code(s): E11.10 - Type 2 diabetes mellitus with ketoacidosis without coma (2) Abdominal pain Current Visit: Yes Status: Acute Qualifiers: Abdominal location: generalized Qualified Code(s): R10.84 - Generalized abdominal pain (3) Hypothyroidism Current Visit: Yes Status: Acute Qualifiers: Hypothyroidism type: acquired Qualified Code(s): E03.9 - Hypothyroidism, unspecified (4) HTN (hypertension) Current Visit: Yes Status: Acute Qualifiers: Hypertension type: essential hypertension Qualified Code(s): I10 - Essential (primary) hypertension (5) DVT prophylaxis Current Visit: Yes Status: Acute - Time Spent With Patient Total time spent is greater than 50% in coordination of care (as documented) at patient's floor/unit and/or counseling patient:
[2018-04-01] MEDS ORDERED: Ringers Solution, Lactated 1,000 ML IVC ONE ×2 (17:11→17:12)
[2018-04-01] MEDS ORDERED: Ringers Solution, Lactated 1,000 ML ONE (17:16)
[2018-04-01] MEDS ORDERED: D5% in 0.45% NACL 1,000 ML IVC PRN (17:18)
[2018-04-01] MEDS ORDERED: D5% in 0.45% NACL w KCl 20 MEQ/1,000 ML MLS IVC PRN (17:18)
[2018-04-01] MEDS ORDERED: 0.9 % Sodium Chloride 1,000 ML IVC SCH (17:30)
[2018-04-01] MEDS ORDERED: 0.9 % Sodium Chloride w KCl 20 MEQ/1,000 ML MLS IVC PRN (18:09)
[2018-04-01] MEDS: Gabapentin 300 MG CAPSULE PO SCH (18:14)
[2018-04-01] MEDS: *HR* Heparin 5,000 UNIT/ML VIAL SQ SCH (18:14)
[2018-04-01 18:16] LABS: BUN/Creatinine Ratio 26 (6-26); Blood Urea Nitrogen 14 mg/dL (6-20); Carbon Dioxide 21 mEq/L (23-29); Chloride 101 mEq/L (98-107); Glucose 306 mg/dL (70-105); Osmolality,Calculated 286 (280-300); Sodium 132 mEq/L (136-145); eGFR For African Americans > 60 (> 60); eGFR For Non-African Americans > 60 (> 60)
[2018-04-01] MEDS ORDERED: Acetaminophen 325 MG TABLET PO PRN (18:38)
[2018-04-01] MEDS ORDERED: Ondansetron 4 MG/2 ML VIAL IVP PRN ×2 (18:41→23:45)
[2018-04-01 20:12] LABS: BUN/Creatinine Ratio 23 (6-26); Blood Urea Nitrogen 11 mg/dL (6-20); Calcium 8.9 mg/dL (8.6-10.3); Carbon Dioxide 21 mEq/L (23-29); Chloride 103 mEq/L (98-107); Glucose 262 mg/dL (70-105); Osmolality,Calculated 284 (280-300); Potassium 4.8 mEq/L (3.5-5.1); Sodium 133 mEq/L (136-145); eGFR For African Americans > 60 (> 60); eGFR For Non-African Americans > 60 (> 60)
[2018-04-01] MEDS ORDERED: *HR* Promethazine 25 MG/ML VIAL IVP PRN (20:46)
[2018-04-01] MEDS ORDERED: Melatonin 3 MG TABLET PO SCH (21:00)
[2018-04-01] MEDS ORDERED: Ketorolac 15 MG/ML VIAL IVP ONE (22:02)
[2018-04-01 22:15] LABS: BUN/Creatinine Ratio 22 (6-26); Blood Urea Nitrogen 10 mg/dL (6-20); Calcium 8.6 mg/dL (8.6-10.3); Carbon Dioxide 23 mEq/L (23-29); Chloride 104 mEq/L (98-107); Glucose 202 mg/dL (70-105); Osmolality,Calculated 283 (280-300); Potassium 3.7 mEq/L (3.5-5.1); Sodium 134 mEq/L (136-145); eGFR For African Americans > 60 (> 60); eGFR For Non-African Americans > 60 (> 60)
--- NOTE | 2018-04-01 23:35 | Electrocardiograph Report ---
[place] [facility] Test Date: 2018-04-01 Pat Name: Cheli Mathews Department: 104 Room: 2N11 Gender: F [employer] Super[employer]: HEIDY : 1965 Requested By: [id number] Order Number: [id number] Reading MD: Salma Huff Measurements Intervals [place] Rate: 81 P: 51 DC: 159 QRS: 19 QRSD: 105 T: 51 QT: 406 QTc: 443 Interpretive Statements SINUS RHYTHM WITH OCCASIONAL VENTRICULAR PREMATURE COMPLEXES WARNING: DATA QUALITY MAY AFFECT INTERPRETATION Electronically Signed On 04-01-2018 23:33:37 EDT by Salma Huff
[2018-04-01] MEDS: *HR* Buprenorphine HCl 8 MG TAB.SUBL SL SCH (23:48)
[2018-04-02 00:18] LABS: BUN/Creatinine Ratio 21 (6-26); Blood Urea Nitrogen 10 mg/dL (6-20); Calcium 8.6 mg/dL (8.6-10.3); Carbon Dioxide 18 mEq/L (23-29); Chloride 104 mEq/L (98-107); Glucose 203 mg/dL (70-105); Osmolality,Calculated 283 (280-300); Potassium 4.4 mEq/L (3.5-5.1); Sodium 134 mEq/L (136-145); eGFR For African Americans > 60 (> 60); eGFR For Non-African Americans > 60 (> 60)
[2018-04-02] MEDS ORDERED: Dextrose Gel 15 GM/37.5 ML TUBE PO PRN ×4 (01:01→16:22)
[2018-04-02] MEDS ORDERED: D5% in Water 1,000 ML IVC PRN ×2 (01:01→16:22)
[2018-04-02] MEDS ORDERED: Insulin DETEMIR 100 UNIT/ML X5UNITS SQ SCH (01:15)
[2018-04-02] MEDS ORDERED: 0.9 % Sodium Chloride 1,000 ML IVC SCH (01:15)
[2018-04-02] MEDS: Metoclopramide 10 MG/2 ML VIAL IVP PRN ×2 (01:56→08:16)
[2018-04-02] MEDS: *HR* Heparin 5,000 UNIT/ML VIAL SQ SCH ×2 (06:13→17:24)
[2018-04-02 06:28] LABS: Basophils % 0.2 %; Eosinophils % 0.1 %; Hematocrit 40.6 % (35.3-44.9); Immature Granulocytes % 0.6 % (0-4); Lymphocytes # 3.5 K/mcL (0.6-4.6); Lymphocytes % 22.9 %; Mean Corpuscular HGB Conc 34.5 g/dL (31.6-35.5); Mean Corpuscular Volume 92.9 fL (83.0-100.0); Monocytes # 0.8 K/mcL (0.0-1.3); Neutrophils # 10.9 K/mcL (1.6-8.9); Platelet Count 124 K/mcL (140-400); Red Blood Count 4.37 M/mcL (3.82-4.97); Segmented Neutrophils % 71.2 %
[2018-04-02 06:48] LABS: BUN/Creatinine Ratio 21 (6-26); Blood Urea Nitrogen 9 mg/dL (6-20); Calcium 8.8 mg/dL (8.6-10.3); Carbon Dioxide 20 mEq/L (23-29); Chloride 106 mEq/L (98-107); Glucose 200 mg/dL (70-105); Osmolality,Calculated 288 (280-300); Sodium 137 mEq/L (136-145); eGFR For African Americans > 60 (> 60); eGFR For Non-African Americans > 60 (> 60)
[2018-04-02 06:55] LABS: VBG HCO3 22 mEq/L (21-27); VBG PCO2 33 mmHg (41-51); VBG PH 7.43 pH Units (7.32-7.42); VBG PO2 226 mmHg (25-50)
[2018-04-02] MEDS: Gabapentin 300 MG CAPSULE PO SCH (08:16)
[2018-04-02] MEDS: *HR* Buprenorphine HCl 8 MG TAB.SUBL SL SCH ×2 (08:16→22:29)
[2018-04-02] MEDS: Insulin LISPRO 300 UNITS/3 ML VIAL SQ SCH ×4 (08:17→21:59)
--- NOTE | 2018-04-02 10:43 | Internal Med Progress Note ---
<Hao Brown - Last Filed: 04/02/18 16:39> Date of Encounter: 04/02/18 Time of Encounter: 10:15 - Assessment and plan (1) DKA (diabetic ketoacidoses) Current Visit: Yes Status: Acute Assessment and plan: Stopped fluid resuscitation since anion gap has closed and pt is on CLD Levemir for basal insulin therapy Medium dose SSI TID with meals Monitor potassium closely and replace as needed Qualifiers: Diabetes mellitus type: type 2 Diabetes mellitus complication detail: without coma Qualified Code(s): E11.10 - Type 2 diabetes mellitus with ketoacidosis without coma (2) Abdominal pain Current Visit: Yes Status: Acute Assessment and plan: secondary to DKA, vomiting, and diarrhea has improved tylenol prn for pain Qualifiers: Abdominal location: generalized Qualified Code(s): R10.84 - Generalized abdominal pain (3) Hypothyroidism Current Visit: Yes Status: Acute Assessment and plan: Continue home synthroid Qualifiers: Hypothyroidism type: acquired Qualified Code(s): E03.9 - Hypothyroidism, unspecified (4) HTN (hypertension) Current Visit: Yes Status: Acute Assessment and plan: normotensive currently Continue home meds Qualifiers: Hypertension type: essential hypertension Qualified Code(s): I10 - Essential (primary) hypertension (5) DVT prophylaxis Current Visit: Yes Status: Acute - Time Spent With Patient Total time spent is greater than 50% in coordination of care (as documented) at patient's floor/unit and/or counseling patient: - Subjective Interval history: Ms. Mathews is a 52 year old female, with past medical history of diabetes, who presented on 04/01 complaining of diffuse abdominal pain and headache. Pt rated both MARAVILLA pain and abd pain as 9/10. Pt stated abd and MARAVILLA started 03/31 around the same time and were originally an 8/10. MARAVILLA made worse by light. Pain accompanied by vomiting, diarrhea, and painful urination. Denied any hematemesis, melena, hematochezia, or hematuria. Denies any chest pain or shortness of breath. 2 weeks ago pt was seen by a provider at [facility] who increased pt's insulin regimen to Novolog 15 units TID with meals, and added Xultophy as well. Reported pt has not seen a provider previous to that visit in quite some time due to pt substance abuse and suboxone. 04/02: Pt seen and examined at bedside. Complained of continued nausea overnight, which was partially relieved by Reglan. States abd pain has improved slightly, but no change in MARAVILLA. No vomiting, or diarrhea. Denies chest pain, SOB, fever, or chills. - Constitutional Vitals: Temp Pulse Resp BP Pulse Ox 99.2 F 73 20 154/80 93 04/02/18 07:50 04/02/18 07:50 04/02/18 07:50 04/02/18 07:50 04/02/18 07:50 General appearance: Present: A&O X 3, severe distress, answers questions appropriately Exam: Head: normocephalic, atraumatic Eyes: PERRL, EOMI, sclera anicteric Neck: supple, trachea midline, no lymphadenopathy Heart: RRR, +S1, +S2. No murmurs, clicks, or rubs Lungs: CTA bilaterally. non-labored breathing. No wheezes, rales, or rhonchi noted. GI: Abdomen soft, non-distended, normoactive bowel sounds. Diffusely TTP but non -peritoneal. Extremities: warm, radial pulses present and equal, no pedal edema Neuro: A&Ox3, no focal deficits, no speech difficulty Skin: [place], warm, and dry Internal Medicine: Result - Labs CBC & Chem 7: 04/02/18 05:49 04/02/18 05:49 Labs: Short CBC 04/02/18 Range/Units 05:49 WBC 15.3 H (4.3-11.1) K/mcL Hgb 14.0 D (11.5-15.4) g/dL Hct 40.6 (35.3-44.9) % Plt Count 124 L (140-400) K/mcL Neutrophils # 10.9 H (1.6-8.9) K/mcL BMP 04/01/18 04/01/18 04/01/18 17:44 19:44 21:23 Sodium 132 L 133 L 134 L Potassium 4.0 4.8 3.7 Chloride 101 103 104 Carbon Dioxide 21 L 21 L 23 BUN 14 11 10 Creatinine 0.54 L 0.47 L 0.45 L Glucose 306 H 262 H 202 H Calcium 9.0 8.9 8.6 04/01/18 04/02/18 23:10 05:49 Sodium 134 L 137 Potassium 4.4 4.0 Chloride 104 106 Carbon Dioxide 18 L 20 L BUN 10 9 Creatinine 0.47 L 0.43 L Glucose 203 H 200 H Calcium 8.6 8.8 Consult Discharge Plan - Plan Referrals: NONE,PCP [Primary Care Provider] - <JeradEmanuel Cheryl - Last Filed: 04/02/18 18:13> Date of Encounter: 04/02/18 - Assessment and plan (1) DKA (diabetic ketoacidoses) Current Visit: Yes Status: Acute Qualifiers: Diabetes mellitus type: type 2 Diabetes mellitus complication detail: without coma Qualified Code(s): E11.10 - Type 2 diabetes mellitus with ketoacidosis without coma (2) Abdominal pain Current Visit: Yes Status: Acute Qualifiers: Abdominal location: generalized Qualified Code(s): R10.84 - Generalized abdominal pain (3) Hypothyroidism Current Visit: Yes Status: Acute Qualifiers: Hypothyroidism type: acquired Qualified Code(s): E03.9 - Hypothyroidism, unspecified (4) HTN (hypertension) Current Visit: Yes Status: Acute Qualifiers: Hypertension type: essential hypertension Qualified Code(s): I10 - Essential (primary) hypertension (5) DVT prophylaxis Current Visit: Yes Status: Acute - Time Spent With Patient Total time spent is greater than 50% in coordination of care (as documented) at patient's floor/unit and/or counseling patient: - Constitutional Vitals: Temp Pulse Resp BP Pulse Ox 98.2 F 62 16 92/63 94 04/02/18 16:20 04/02/18 16:20 04/02/18 16:20 04/02/18 16:40 04/02/18 16:20 Internal Medicine: Result - Labs CBC & Chem 7: 04/02/18 05:49 04/02/18 16:36 Labs: Short CBC 04/02/18 Range/Units 05:49 WBC 15.3 H (4.3-11.1) K/mcL Hgb 14.0 D (11.5-15.4) g/dL Hct 40.6 (35.3-44.9) % Plt Count 124 L (140-400) K/mcL Neutrophils # 10.9 H (1.6-8.9) K/mcL BMP 04/01/18 04/01/18 04/01/18 17:44 19:44 21:23 Sodium 132 L 133 L 134 L Potassium 4.0 4.8 3.7 Chloride 101 103 104 Carbon Dioxide 21 L 21 L 23 BUN 14 11 10 Creatinine 0.54 L 0.47 L 0.45 L Glucose 306 H 262 H 202 H Calcium 9.0 8.9 8.6 04/01/18 04/02/18 04/02/18 23:10 05:49 16:36 Sodium 134 L 137 138 Potassium 4.4 4.0 4.0 Chloride 104 106 108 H Carbon Dioxide 18 L 20 L 25 BUN 10 9 14 Creatinine 0.47 L 0.43 L 0.48 L Glucose 203 H 200 H 193 H Calcium 8.6 8.8 8.6 - Attending Attestation I examined this patient and my medical decision-making was reviewed with the Resident Physician on 04/02/18. I agree with the documented findings, disposition and treatment plan as described except to the extent set forth below. Ms Mathews is currently in observation for acute DKA. She remains moderate to high risk due to potential for worsening clinical status. Ms Mathews is off insulin drip. No fever or chills. WBC improving. Still having some abd pain. Not eating much. Some nausea. Exam alert Mucus membranes dry Heart reg No wheeze Abd with some tenderness but no peritoneal signs. I/P 1. DKA - resolved 2. Abd pain 3. Leukocytosis Add Reglan - ? component of gastroparesis. Further diagnoses and plan as above.
[2018-04-02] MEDS ORDERED: Naloxone 0.4 MG/ML INJ IVP PRN (16:22)
[2018-04-02] MEDS ORDERED: Acetaminophen 325 MG TABLET PO PRN (16:22)
[2018-04-02] MEDS ORDERED: Metoclopramide 10 MG/2 ML VIAL IVP PRN (16:22)
[2018-04-02] MEDS ORDERED: *HR* Dextrose 50 % in Water (Syg) 50 ML SYRINGE IVP PRN (16:22)
[2018-04-02 17:12] LABS: BUN/Creatinine Ratio 29 (6-26); Blood Urea Nitrogen 14 mg/dL (6-20); Calcium 8.6 mg/dL (8.6-10.3); Carbon Dioxide 25 mEq/L (23-29); Chloride 108 mEq/L (98-107); Glucose 193 mg/dL (70-105); Osmolality,Calculated 292 (280-300); Sodium 138 mEq/L (136-145); eGFR For African Americans > 60 (> 60); eGFR For Non-African Americans > 60 (> 60)
[2018-04-02] MEDS ORDERED: Insulin LISPRO 300 UNITS/3 ML VIAL SQ SCH (21:00)
[2018-04-02] MEDS: Metoclopramide 10 MG/2 ML VIAL IVP SCH (21:58)
[2018-04-02] MEDS: Melatonin 3 MG TABLET PO SCH (21:59)
[2018-04-02] MEDS: Insulin DETEMIR 100 UNIT/ML X5UNITS SQ SCH (22:30)
[2018-04-03] MEDS ORDERED: Ringers Solution, Lactated 1,000 ML IVC ONE ×3 (00:49→04:32)
[2018-04-03 04:57] LABS: Basophils % 0.3 %; Eosinophils # 0.1 K/mcL (0.0-0.6); Eosinophils % 0.9 %; Hematocrit 36.2 % (35.3-44.9); Hemoglobin 12.4 g/dL (11.5-15.4); Immature Granulocytes % 0.5 % (0-4); Immature Platelets 5.3 % (1.1-6.1); Lymphocytes % 48.2 %; Mean Corpuscular HGB Conc 34.3 g/dL (31.6-35.5); Mean Corpuscular Volume 96.3 fL (83.0-100.0); Mean Platelet Volume 10.9 fL (9.4-12.4); Monocytes # 0.4 K/mcL (0.0-1.3); Monocytes % 5.7 %; Neutrophils # 2.8 K/mcL (1.6-8.9); Nucleated Red Blood Cells 0.3 /100 WBC (0); Red Blood Count 3.76 M/mcL (3.82-4.97); Red Cell Distribution Width 12.2 % (11.5-14.5); Segmented Neutrophils % 44.4 %
[2018-04-03 04:58] LABS: Platelet Count 85 K/mcL (140-400)
[2018-04-03 05:15] LABS: BUN/Creatinine Ratio 33 (6-26); Blood Urea Nitrogen 16 mg/dL (6-20); Calcium 8.7 mg/dL (8.6-10.3); Carbon Dioxide 24 mEq/L (23-29); Chloride 109 mEq/L (98-107); Glucose 224 mg/dL (70-105); Osmolality,Calculated 294 (280-300); Potassium 3.5 mEq/L (3.5-5.1); Sodium 138 mEq/L (136-145); eGFR For African Americans > 60 (> 60); eGFR For Non-African Americans > 60 (> 60)
[2018-04-03 05:47] LABS: Troponin I < 0.03 ng/mL (< 0.04)
[2018-04-03] MEDS: *HR* Heparin 5,000 UNIT/ML VIAL SQ SCH ×2 (06:01→17:15)
[2018-04-03] MEDS: Metoclopramide 10 MG/2 ML VIAL IVP SCH ×4 (07:57→22:29)
[2018-04-03] MEDS: Gabapentin 300 MG CAPSULE PO SCH (07:57)
[2018-04-03] MEDS: Insulin LISPRO 300 UNITS/3 ML VIAL SQ SCH ×4 (07:58→22:32)
[2018-04-03] MEDS: *HR* Buprenorphine HCl 8 MG TAB.SUBL SL SCH ×2 (08:51→22:29)
--- NOTE | 2018-04-03 08:57 | Internal Med Progress Note ---
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 insulin use: unspecified impregnator operator insulin use status Qualified Code(s): E11.9 - Type 2 diabetes mellitus without complications; Z79.4 - retirement (current) use of insulin (2) DKA (diabetic ketoacidoses) Current Visit: Yes Status: Resolved Assessment and plan: DKA has resolved Monitor potassium closely and replace as needed Qualifiers: Diabetes mellitus type: type 2 Diabetes mellitus complication detail: without coma Qualified Code(s): E11.10 - Type 2 diabetes mellitus with ketoacidosis without coma (3) Abdominal pain Current Visit: Yes Status: Resolved Assessment and plan: CT on 04/01 revealed no acute abnormalities and diverticulosis Qualifiers: Abdominal location: generalized Qualified Code(s): R10.84 - Generalized abdominal pain (4) Hypothyroidism Current Visit: Yes Status: Acute Assessment and plan: Continue home synthroid Qualifiers: Hypothyroidism type: acquired Qualified Code(s): E03.9 - Hypothyroidism, unspecified (5) HTN (hypertension) Current Visit: Yes Status: Acute Assessment and plan: hypotension without AMS, lightheadedness, or fatigue. Hold home meds Qualifiers: Hypertension type: essential hypertension Qualified Code(s): I10 - Essential (primary) hypertension (6) DVT prophylaxis Current Visit: Yes Status: Acute (7) Bradycardia Current Visit: Yes Status: Acute Assessment and plan: HR 46-50 overnight, accompanied by hypotension at 75/46 and 91/56 No fatigue, AMS, or lightheadedness. No MARAVILLA. Afebrile Echo revealed normal heart function with mild left ventricular diastolic dysfunction Since accompanied by hypotension, concerned for sepsis or unknown infection CXR to look for pneumonia - Time Spent With Patient Total time spent is greater than 50% in coordination of care (as documented) at patient's floor/unit and/or counseling patient: - Subjective Interval history: Ms. Mathews is a 52 year old female, with past medical history of diabetes, who presented on 04/01 complaining of diffuse abdominal pain and headache. Pt rated both MARAVILLA pain and abd pain as 9/10. Pt stated abd and MARAVILLA started 03/31 around the same time and were originally an 05/07. MARAVILLA made worse by light. Pain accompanied by vomiting, diarrhea, and painful urination. Denied any hematemesis, melena, hematochezia, or hematuria. Denies any chest pain or shortness of breath. 2 weeks ago pt was seen by a provider at [facility] who increased pt's insulin regimen to Novolog 15 units TID with meals, and added Xultophy as well. Reported pt has not seen a provider previous to that visit in quite some time due to pt substance abuse and suboxone. 04/02: Pt seen and examined at bedside. Complained of continued nausea overnight, which was partially relieved by Reglan. States abd pain has improved slightly, but no change in MARAVILLA. No vomiting, or diarrhea. Denies chest pain, SOB, fever, or chills. - Constitutional Vitals: Temp Pulse Resp BP Pulse Ox 98.3 F 50 16 107/65 94 04/03/18 07:46 04/03/18 07:46 04/03/18 07:46 04/03/18 07:46 04/03/18 07:46 General appearance: Present: A&O X 3, severe distress, answers questions appropriately Internal Medicine: Result - Labs CBC & Chem 7: 04/03/18 04:28 04/03/18 04:28 Labs: Short CBC 04/03/18 Range/Units 04:28 WBC 6.3 D (4.3-11.1) K/mcL Hgb 12.4 D (11.5-15.4) g/dL Hct 36.2 (35.3-44.9) % Plt Count 85 L (140-400) K/mcL Neutrophils # 2.8 (1.6-8.9) K/mcL BMP 04/02/18 04/03/18 16:36 04:28 Sodium 138 138 Potassium 4.0 3.5 Chloride 108 H 109 H Carbon Dioxide 25 24 BUN 14 16 Creatinine 0.48 L 0.48 L Glucose 193 H 224 H Calcium 8.6 8.7 Cardiac Enzymes 04/03/18 Range/Units 04:28 Troponin I < 0.03 (< 0.04) ng/mL - VTE Documentation of Mechanical Device: Intermittent pneumatic compression device Consult Discharge Plan - Plan Referrals: NONE,PCP [Primary Care Provider] - <Emanuel Mars - Last Filed: 04/03/18 18:36> Date of Encounter: 04/03/18 - Assessment and plan (1) Hypotension Current Visit: Yes Status: Acute Qualifiers: Hypotension type: hypotension due to drug Qualified Code(s): I95.2 - Hypotension due to drugs (2) DKA (diabetic ketoacidoses) Current Visit: Yes Status: Resolved Qualifiers: Diabetes mellitus type: type 2 Diabetes mellitus complication detail: without coma Qualified Code(s): E11.10 - Type 2 diabetes mellitus with ketoacidosis without coma (3) Abdominal pain Current Visit: Yes Status: Resolved Qualifiers: Abdominal location: generalized Qualified Code(s): R10.84 - Generalized abdominal pain (4) Hypothyroidism Current Visit: Yes Status: Acute Qualifiers: Hypothyroidism type: acquired Qualified Code(s): E03.9 - Hypothyroidism, unspecified (5) HTN (hypertension) Current Visit: Yes Status: Acute Qualifiers: Hypertension type: essential hypertension Qualified Code(s): I10 - Essential (primary) hypertension (6) DVT prophylaxis Current Visit: Yes Status: Acute (7) Type 2 diabetes mellitus Current Visit: Yes Status: Chronic Qualifiers: Diabetes mellitus correction insulin use: with correction use Diabetes mellitus complication status: with hyperglycemia Qualified Code(s): E11.65 - Type 2 diabetes mellitus with hyperglycemia; 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8 (1.6-8.9) K/mcL BMP 04/03/18 04:28 Sodium 138 Potassium 3.5 Chloride 109 H Carbon Dioxide 24 BUN 16 Creatinine 0.48 L Glucose 224 H Calcium 8.7 Cardiac Enzymes 04/03/18 Range/Units 04:28 Troponin I < 0.03 (< 0.04) ng/mL - Impressions Impressions Echocardiogram 04/03/18 08:06 Impressions: LVEF 60%. Mild left ventricular diastolic dysfunction. Normal right ventricular structure and function. No significant valvular dysfunction. No pulmonary hypertension. Left Ventricular Wall Motion: Rest Echo Findings All wall segments showed normal motion. Findings: Study Quality * Technically adequate exam. ECG Findings * Sinus bradycardia. Left Ventricle * LVEF 60%. * Normal LV chamber size, wall thickness and function. * Mild left ventricular diastolic dysfunction. Right Ventricle * Normal right ventricular structure and function. Left Atrium * Normal left atrial size. Right Atrium * Normal right atrial size. Aortic Valve * No aortic regurgitation. * Trileaflet aortic valve. * Mildly thickened aortic valve leaflets. * No aortic stenosis. Mitral Valve * Normal mitral valve structure. * No mitral regurgitation. * No mitral stenosis. Tricuspid Valve * Tricuspid valve not well visualized. * Trace tricuspid regurgitation. Pulmonic Valve * Pulmonic valve is not well visualized. * No pulmonic stenosis. * No pulmonic regurgitation. Pulmonary Artery * Pulmonary artery not well visualized. Aorta * Normally sized aortic root. Pericardium * There is no pericardial effusion present. Interatrial Septum * No evidence of PFO by color Doppler. IVC * The IVC is not dilated. - Attending Attestation I examined this patient and my medical decision-making was reviewed with the Resident Physician on 04/03/18. I agree with the documented findings, disposition and treatment plan as described except to the extent set forth below. Ms Mathews is currently in observation for acute DKA. She developed bradycardia and hypotension last evening. She remains moderate to high risk at this time. Ms Mathews is feeling OK. No CP or SOB. WBC now normal. BP doing a little better now. Exam alert Comfortable Mucus membranes dry Heart reg No wheeze abd soft I/P 1. Hypotension 2. Bradycardia Cultures ordered Hold beta cecelia Monitor tonight and reassess tomorrow Further diagnoses and plan as above
[2018-04-03] MEDS: Melatonin 3 MG TABLET PO SCH (22:29)
[2018-04-03] MEDS: Insulin DETEMIR 100 UNIT/ML X5UNITS SQ SCH (22:29)
[2018-04-04] MEDS: *HR* Heparin 5,000 UNIT/ML VIAL SQ SCH (06:37)
[2018-04-04 07:55] VITALS: BP 132/75
[2018-04-04] MEDS: Insulin LISPRO 300 UNITS/3 ML VIAL SQ SCH (09:41)
[2018-04-04] MEDS: *HR* Buprenorphine HCl 8 MG TAB.SUBL SL SCH (09:46)
[2018-04-04] MEDS: Gabapentin 300 MG CAPSULE PO SCH (09:46)
[2018-04-04] MEDS: Metoclopramide 10 MG/2 ML VIAL IVP SCH (09:46)
--- NOTE | 2018-04-04 11:35 | Discharge Summary ---
<Frantz Pulido - Last Filed: 04/04/18 11:27> - NOTES TO OUTPATIENT PROVIDER Notes to Outpatient Provider: Patient came in with DKA, was normalized on Insulin Drip. Developed bradycardia with hypotension. Stopped metoprolol and decreased lisinopril. Hypotension resolved. TTE was normal. Orders not resulted at time of discharge: Pending orders 04/03/18 05:28 EKG [ECG 12 lead ECG] [ECG] Stat 04/03/18 07:45 Culture,Urine [RM] Routine 04/03/18 10:22 Culture,Blood [BC] Routine Date of Encounter: 04/04/18 Time of Encounter: 11:27 - Discharge Diagnosis (1) DKA (diabetic ketoacidoses) Priority: Primary Status: Resolved Assessment and Plan: DKA has resolved Patient does say that she has insulin available to her at home She says she has a sliding scale that she knows how to adjust for, and feels comfortable managing She will continue metformin, Xultophy as prescribed Qualifiers: Diabetes mellitus type: type 2 Diabetes mellitus complication detail: without coma Qualified Code(s): E11.10 - Type 2 diabetes mellitus with ketoacidosis without coma (2) Abdominal pain Priority: Secondary Status: Resolved Assessment and Plan: CT on 04/01 revealed no acute abnormalities and diverticulosis Now resolved Qualifiers: Abdominal location: generalized Qualified Code(s): R10.84 - Generalized abdominal pain (3) Hypothyroidism Priority: Secondary Status: Acute Assessment and Plan: Continue home synthroid Qualifiers: Hypothyroidism type: acquired Qualified Code(s): E03.9 - Hypothyroidism, unspecified (4) HTN (hypertension) Priority: Secondary Status: Acute Assessment and Plan: hypotension without AMS, lightheadedness, or fatigue. Metoprolol may be the cause of hypotension with bradycardia We will hold BB at this time, decrease dose of Lisinopril Qualifiers: Hypertension type: essential hypertension Qualified Code(s): I10 - Essential (primary) hypertension (5) Bradycardia Priority: Secondary Status: Acute Assessment and Plan: HR 46-50 over stay, accompanied by hypotension at 75/46 and 91/56 No fatigue, AMS, or lightheadedness. No MARAVILLA. Echo revealed normal heart function with mild left ventricular diastolic dysfunction Stopped metoprolol, to be evaluated by PCP Hospital course: Ms. Mathews is a 52 year old female with history of drug abuse and poorly controlled DM1. She presented to the ED with abdominal pain and vomiting, as well as a glucose which was harshly elevated after neglecting to take her insulin for some time. At that time, the clinical picture met that of DKA, and her blood gas + labs demonstrated a mixed acid base disturbance including metabolic acidosis with respiratory and metabolic alkalosis. She received and insulin drip at DKA protocol and several liters of fluid which unmasked the underlying acidosis. Her anion gap was trended to resolution of DKA, and the patient was transitioned to SQ insulin. Over the say, however, the patient developed hypotension and bradycardia which did not seem to be relieved with additional fluids. Septic workup was completed, and returned normal. Beta cecelia was stopped, which resulted in resolution of hypotension and bradycardia. She is now stable for discharge with close follow-up. For more detailed information regarding hospital course and plan at discharge, please see individual assessments and plans. Discharge discussed with: patient, nurse, social work, case management - Time Spent with Patient Total time spent providing and/or coordinating discharge services: Greater than 30 minutes - Discharge Medications Prescriptions: Metoclopramide [Reglan] 10 mg PO Q6HR PRN #30 tablet PRN Reason: Nausea And Vomiting Lisinopril 2.5 mg PO DAILY #30 tablet Home Medications: Levothyroxine [Synthroid] 50 mcg PO QAM 06/03/15 [History] Melatonin 5 mg PO HS 06/03/15 [History] Simvastatin [Zocor] 20 mg PO HS 06/03/15 [History] Buprenorphine HCl/Naloxone HCl [Suboxone 8 mg-2 mg Sl Film] 1 each SL BID [History] Escitalopram [Lexapro] 10 mg PO DAILY 04/01/18 [History] Gabapentin [Neurontin] 300 mg PO DAILY 04/01/18 [History] Insulin ASPART [NovoLOG] 15 unit SQ TIDWM 04/01/18 [History] Insulin Degludec/Liraglutide [Xultophy 100 Unit-3.6MG/ml Pen] 20 unit SQ DAILY 04/01/18 [History] Metformin HCl [Glucophage] 1,000 mg PO BID 04/01/18 [History] Omeprazole [PriLOSEC] 20 mg PO DAILY 04/01/18 [History] Lisinopril 2.5 mg PO DAILY #30 tablet 04/04/18 [Rx] Metoclopramide [Reglan] 10 mg PO Q6HR PRN #30 tablet 04/04/18 [Rx] Allergies/Adverse Reactions: 3 Allergy/AdvReac Type Severity Reaction Status Date / Time codeine Allergy Hives Verified 11/04/16 10:39 ciprofloxacin [From Cipro] AdvReac Vomiting Verified 11/04/16 10:39 ibuprofen [From Motrin] AdvReac Nausea Verified 11/04/16 10:39 naproxen AdvReac Nausea Verified 11/04/16 10:39 tramadol AdvReac Vomiting Verified 11/04/16 10:39 Date of admission: 04/01/18 14:33 Primary care physician: PCP NONE Consults: 04/01/18 16:06 Consult to Nutrition [CONS] Routine Comment: Consulting Provider: NUTRITION Reason for Dietary Consult: MST Score Consult to Lens Assorter [CONS] Routine Reason for SW Consult: Prescriptions Medications Discharging clinician: Frantz Pulido Anticipated date of discharge: 04/04/18 - Constitutional Vitals: Temp Pulse Resp BP Pulse Ox 98.2 F 56 16 132/75 97 04/04/18 07:51 04/04/18 07:51 04/04/18 07:51 04/04/18 07:51 04/04/18 07:51 General appearance: Present: A&O X 3, severe distress, answers questions appropriately - Head Head exam: Present: atraumatic, normocephalic - Eye Eye exam: Present: PERRL, conjuntiva pink, sclera anicteric Pupils: Present: PERRL - Neck Neck exam general surgery: Present: supple, trachea midline. Absent: lymphadenopathy - Respiratory Respiratory exam: Present: CTAB. Absent: accessory muscle use, rales, rhonchi, wheezes - Cardiovascular Cardiovascular exam: Present: RRR, +S1, +S2. Absent: diastolic murmur, gallop, rubs, systolic murmur - GI/Abdominal GI/Abdominal exam: Present: normal bowel sounds, soft, no peritoneal signs. Absent: distended, tenderness - Extremities Exam Extremities exam: Present: warm, radial pulses palpable and symmetrical. Absent : calf tenderness, cyanotic, pedal edema - Neurological Exam Neurological exam: Present: CN II-XII intact, oriented X3, no focal deficits. Absent: pronater drift, facial droop, speech deficit - Skin Skin exam: Present: dry, intact - Patient Status Disposition: Home, Self-Care Condition: Fair Functional capacity at discharge: independent ambulation Overall status at discharge: patient is progressing back to baseline - Discharge Instructions Instructions: Diabetes Mellitus Type 2 in Adults (DC) Follow Up With: NONE,PCP [Primary Care Provider] - Additional Instructions: Follow-up with primary care and field talent qualification specialist within one week. Continue home regimen of insulin as previously directed by field talent qualification specialist. -Check blood glucose four times per day Medication changes: -Stop Metoprolol -Stop Lisinopril 5mg, start Lisinopril 2.5mg -Take Reglan every 6 hours as needed for nausea, vomiting, abdominal pain. Return to the ED for recurrent symptoms, uncontrolled high glucose which cannot be controlled, unremitting nausea or vomiting. Return to the ED for dizziness, lightheadedness, or loss of consciousness. - Diet and Activity Activity: increase activity as tolerated Diet: diabetic diet - VTE Documentation of Mechanical Device: Intermittent pneumatic compression device <Emanuel Mars - Last Filed: 04/04/18 16:40> Orders not resulted at time of discharge: Pending orders 04/03/18 05:28 EKG [ECG 12 lead ECG] [ECG] Stat 04/03/18 07:45 Culture,Urine [RM] Routine 04/03/18 10:22 Culture,Blood [BC] Routine Date of Encounter: 04/04/18 - Discharge Diagnosis (1) DKA (diabetic ketoacidoses) Status: Resolved Qualifiers: Diabetes mellitus type: type 2 Diabetes mellitus complication detail: without coma Qualified Code(s): E11.10 - Type 2 diabetes mellitus with ketoacidosis without coma (2) Abdominal pain Status: Resolved Qualifiers: Abdominal location: generalized Qualified Code(s): R10.84 - Generalized abdominal pain (3) Hypothyroidism Status: Chronic Qualifiers: Hypothyroidism type: acquired Qualified Code(s): E03.9 - Hypothyroidism, unspecified (4) HTN (hypertension) Status: Chronic Qualifiers: Hypertension type: essential hypertension Qualified Code(s): I10 - Essential (primary) hypertension (5) Bradycardia Status: Resolved (6) Gastroparesis due to DM Priority: Secondary Status: Suspected (7) Tobacco abuse Priority: Secondary Status: Chronic Hospital course: Ms. Mathews is a 52 year old female - Time Spent with Patient Total time spent providing and/or coordinating discharge services: 38min Date of admission: 04/01/18 14:33 Primary care physician: PCP NONE Consults: 04/01/18 16:06 Consult to Nutrition [CONS] Routine Comment: Consulting Provider: NUTRITION Reason for Dietary Consult: MST Score Consult to Lens Assorter [CONS] Routine Reason for SW Consult: Prescriptions Medications - Constitutional Vitals: Temp Pulse Resp BP Pulse Ox 98.2 F 56 16 132/75 97 04/04/18 07:51 04/04/18 07:51 04/04/18 07:51 04/04/18 07:51 04/04/18 07:51 - Attending Attestation I examined this patient and my medical decision-making was reviewed with the Resident Physician on 04/04/18. I agree with the documented findings, disposition and treatment plan as described except to the extent set forth below. Ms Mathews has been admitted with acute DKA. She improved with insulin drip. Most likely has a component of gastroparesis and has vomiting which worsens situation. She had issues with hypotension and bradycardia - beta cecelia stopped. Today she is afebrile and feels well. She is ready for discharge home. Exam alert Comfortable Mucus membranes dry Heart reg No wheeze Plan D/C home today. PRN Reglan.
--- NOTE | 2018-04-05 14:54 | Electrocardiograph Report ---
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
== END 2018-04-04 13:30 | disposition home or self-care (01) ==
LOC: EMEROO 09:43 → 2NNU 09:43 → SUATTDRO 16:17 → 2NENU 04-02 16:21
PROVIDERS: ADMIT Student in an Organized Health Care Education/Training Program; ATTEND Internal Medicine

== ENCOUNTER 2020-02-10 07:12 | Observation (INO) ==
[2020-02-10] MEDS ORDERED: 0.9 % Sodium Chloride 1,000 ML IVC ONE ×3 (07:29→10:07)
[2020-02-10 08:24] LABS: VBG HCO3 26 mEq/L (21-27); VBG PCO2 32 mmHg (41-51); VBG PH 7.51 pH Units (7.32-7.42); VBG PO2 51 mmHg (25-50)
[2020-02-10 08:44] LABS: Alanine Aminotransferase 71 Units/L (7-52); Albumin 4.6 g/dL (3.5-5.7); Albumin/Globulin Ratio 1.3 (1.1-2.2); Alkaline Phosphatase 114 Units/L (34-104); Aspartate Amino Transferase 63 Units/L (13-39); BUN/Creatinine Ratio 56 (6-26); Bilirubin,Total 1.2 mg/dL (0.3-1.0); Blood Urea Nitrogen 50 mg/dL (6-20); Calcium 10.6 mg/dL (8.6-10.3); Carbon Dioxide 21 mEq/L (23-29); Chloride 84 mEq/L (98-107); Globulin 3.5 g/dL (2.4-3.5); Glucose 410 mg/dL (70-105); Osmolality,Calculated 297 (280-300); Potassium 4.5 mEq/L (3.5-5.1); Sodium 128 mEq/L (136-145); Total Protein 8.1 g/dL (6.4-8.9); Troponin I < 0.03 ng/mL (< 0.04); eGFR For African Americans > 60 (> 60); eGFR For Non-African Americans > 60 (> 60)
[2020-02-10 09:47] LABS: Bilirubin,Urine Negative (Negative); Blood,Urine Trace (Negative); Color,Urine Yellow (Yellow); Glucose,Urine (UA) >=1000 mg/dL (Normal); Ketones,Urine 80 mg/dL (Negative); Leukocyte Esterase,Urine Negative (Negative); Nitrite,Urine Negative (Negative); PH,Urine 5.5 pH Units (5.0-8.0); Protein,Urine 100 mg/dL (Neg-Trace); Specific Gravity,Urine > 1.030 (1.010-1.025); Urobilinogen,Urine Normal (Normal)
[2020-02-10 09:52] LABS: Bacteria,Urine None Seen per hpf (None-Few); Hyaline Casts,Urine None Seen per lpf (None-Few); Squamous Epithelial Cell,Urine Many per lpf (None-Few)
[2020-02-10 09:53] LABS: Clarity,Urine Slightly Cloudy (Clear)
[2020-02-10] MEDS ORDERED: 0.9 % Sodium Chloride 1,000 ML ONE (10:02)
[2020-02-10] MEDS ORDERED: Insulin Human Regular 5 UNIT in 0.9 % Sodium Chloride 10 ML IV ONE (10:10)
[2020-02-10] MEDS ORDERED: *HR* Promethazine 25 MG/ML VIAL IVP ONE (10:58)
[2020-02-10] MEDS ORDERED: Ondansetron 4 MG/2 ML VIAL IVP STA (12:04)
[2020-02-10 13:01] LABS: Hematocrit 44.2 % (35.3-44.9); Hemoglobin 14.5 g/dL (11.5-15.4); Mean Corpuscular HGB Conc 32.8 g/dL (31.6-35.5); Mean Corpuscular Hemoglobin 31.7 pg (28.0-33.3); Mean Corpuscular Volume 96.7 fL (83.0-100.0); Mean Platelet Volume 10.6 fL (9.4-12.4); Platelet Count 111 K/mcL (140-400); Red Blood Count 4.57 M/mcL (3.82-4.97); Red Cell Distribution Width 11.4 % (11.5-14.5); White Blood Count 11.9 K/mcL (4.3-11.1)
[2020-02-10] MEDS ORDERED: *HR* Dextrose 50 % in Water (Syg) 50 ML SYRINGE IVP PRN (14:22)
[2020-02-10] MEDS ORDERED: Dextrose Gel 15 GM/37.5 ML TUBE PO PRN ×2 (14:22)
[2020-02-10] MEDS ORDERED: *HR* Promethazine 25 MG/ML VIAL IVP PRN (14:22)
[2020-02-10] MEDS ORDERED: Naloxone 0.4 MG/ML INJ IVP PRN (14:22)
[2020-02-10] MEDS ORDERED: D5% in Water 1,000 ML IVC PRN (14:22)
[2020-02-10] MEDS ORDERED: Insulin DETEMIR 100 UNIT/ML X5UNITS SQ ONE (14:26)
[2020-02-10] MEDS: Metoclopramide 10 MG/2 ML VIAL IVP SCH ×2 (15:35→17:36)
[2020-02-10] MEDS: Insulin LISPRO 300 UNITS/3 ML VIAL SQ SCH ×2 (15:35→17:36)
[2020-02-10] MEDS ORDERED: Ketorolac 30 MG/ML VIAL IVP ONE (15:52)
[2020-02-10] MEDS: 0.9 % Sodium Chloride 1,000 ML IVC SCH (16:15)
[2020-02-10] MEDS: Pantoprazole 40 MG VIAL IVP SCH (17:36)
[2020-02-10] MEDS: Insulin DETEMIR 100 UNIT/ML X5UNITS SQ SCH (20:29)
[2020-02-10] MEDS ORDERED: Melatonin 3 MG TABLET PO PRN (22:15)
[2020-02-11] MEDS: 0.9 % Sodium Chloride 1,000 ML IVC SCH (00:45)
[2020-02-11] MEDS: Metoclopramide 10 MG/2 ML VIAL IVP SCH ×3 (00:45→12:22)
[2020-02-11] MEDS: Insulin LISPRO 300 UNITS/3 ML VIAL SQ SCH ×4 (06:05→17:36)
[2020-02-11 06:18] LABS: Basophils % 0.3 %; Eosinophils # 0.1 K/mcL (0.0-0.6); Eosinophils % 0.8 %; Hematocrit 40.8 % (35.3-44.9); Hemoglobin 13.7 g/dL (11.5-15.4); Immature Granulocytes % 0.2 % (0-4); Lymphocytes % 38.9 %; Mean Corpuscular HGB Conc 33.6 g/dL (31.6-35.5); Mean Corpuscular Hemoglobin 31.9 pg (28.0-33.3); Mean Corpuscular Volume 95.1 fL (83.0-100.0); Mean Platelet Volume 10.9 fL (9.4-12.4); Monocytes # 0.8 K/mcL (0.0-1.3); Monocytes % 7.5 %; Neutrophils # 5.4 K/mcL (1.6-8.9); Platelet Count 103 K/mcL (140-400); Red Blood Count 4.29 M/mcL (3.82-4.97); Red Cell Distribution Width 11.6 % (11.5-14.5); Segmented Neutrophils % 52.3 %; White Blood Count 10.3 K/mcL (4.3-11.1)
[2020-02-11] MEDS: Pantoprazole 40 MG VIAL IVP SCH (06:22)
[2020-02-11 06:43] LABS: Albumin 3.3 g/dL (3.5-5.7); Albumin/Globulin Ratio 1.4 (1.1-2.2); Bilirubin,Direct 0.3 mg/dL (0.0-0.2); Bilirubin,Indirect 0.4 mg/dL (0.0-1.0); Bilirubin,Total 0.7 mg/dL (0.3-1.0); Globulin 2.3 g/dL (2.4-3.5); Total Protein 5.6 g/dL (6.4-8.9)
[2020-02-11 06:53] LABS: BUN/Creatinine Ratio 42 (6-26); Blood Urea Nitrogen 30 mg/dL (6-20); Calcium 8.2 mg/dL (8.6-10.3); Carbon Dioxide 23 mEq/L (23-29); Chloride 108 mEq/L (98-107); Glucose 157 mg/dL (70-105); Osmolality,Calculated 295 (280-300); Potassium 3.4 mEq/L (3.5-5.1); Sodium 138 mEq/L (136-145); eGFR For African Americans > 60 (> 60); eGFR For Non-African Americans > 60 (> 60)
[2020-02-11] MEDS: Gabapentin 400 MG CAPSULE PO SCH ×2 (08:02→22:11)
[2020-02-11] MEDS: lisinopriL 5 MG TABLET PO SCH (08:03)
[2020-02-11] MEDS ORDERED: Potassium Effervescent 25 MEQ TABLET.EFF PO ONE (11:05)
[2020-02-11] MEDS ORDERED: GI Cocktail 40 ML EACH PO ONE ×2 (11:08→12:00)
[2020-02-11] MEDS ORDERED: Ringers Solution, Lactated 1,000 ML IVC SCH (11:15)
[2020-02-11 12:47] LABS: Hepatitis B Surface Antigen Nonreactive (Nonreactive)
[2020-02-11 13:18] LABS: Hepatitis A Antibody IgM Nonreactive (Nonreactive)
[2020-02-11 13:19] LABS: Hepatitis B Core IgM Nonreactive (Nonreactive)
[2020-02-11 14:38] LABS: Hepatitis C Virus Antibody Reactive (Nonreactive)
[2020-02-11] MEDS: Insulin DETEMIR 100 UNIT/ML X5UNITS SQ SCH (22:10)
[2020-02-12] MEDS: Insulin LISPRO 300 UNITS/3 ML VIAL SQ SCH ×3 (00:06→11:10)
[2020-02-12 05:11] LABS: Mean Corpuscular HGB Conc 33.8 g/dL (31.6-35.5)
[2020-02-12 05:13] LABS: Basophils % 0.6 %; Eosinophils # 0.1 K/mcL (0.0-0.6); Eosinophils % 2.1 %; Hematocrit 39.3 % (35.3-44.9); Hemoglobin 13.3 g/dL (11.5-15.4); Immature Platelets 4.5 % (1.1-6.1); Lymphocytes # 3.1 K/mcL (0.6-4.6); Lymphocytes % 50.6 %; Mean Corpuscular Hemoglobin 31.7 pg (28.0-33.3); Mean Corpuscular Volume 93.6 fL (83.0-100.0); Monocytes # 0.4 K/mcL (0.0-1.3); Monocytes % 6.3 %; Neutrophils # 2.4 K/mcL (1.6-8.9); Platelet Count 81 K/mcL (140-400); Red Cell Distribution Width 11.5 % (11.5-14.5); Segmented Neutrophils % 39.4 %; White Blood Count 6.2 K/mcL (4.3-11.1)
[2020-02-12 05:23] LABS: BUN/Creatinine Ratio 33 (6-26); Blood Urea Nitrogen 19 mg/dL (6-20); Calcium 8.1 mg/dL (8.6-10.3); Carbon Dioxide 22 mEq/L (23-29); Chloride 107 mEq/L (98-107); Glucose 294 mg/dL (70-105); Osmolality,Calculated 301 (280-300); Potassium 3.4 mEq/L (3.5-5.1); Sodium 139 mEq/L (136-145); eGFR For African Americans > 60 (> 60); eGFR For Non-African Americans > 60 (> 60)
[2020-02-12] MEDS ORDERED: *HR* Enoxaparin 40 MG/0.4 ML SYRINGE SQ SCH (06:00)
[2020-02-12] MEDS: Gabapentin 400 MG CAPSULE PO SCH (08:23)
[2020-02-12] MEDS: lisinopriL 5 MG TABLET PO SCH (08:24)
[2020-02-12] MEDS ORDERED: Insulin DETEMIR 100 UNIT/ML X5UNITS SQ SCH (09:00)
[2020-02-12 10:58] VITALS: BP 107/68
== END 2020-02-12 12:17 | disposition home or self-care (01) ==
LOC: 3BNU 07:12 → EMEROOARM 07:12 → SUATTDRO 14:22 → 3BNU 15:13
PROVIDERS: ADMIT Internal Medicine; ATTEND Internal Medicine

== ENCOUNTER 2022-01-01 19:21 | Observation (INO) ==
[2022-01-01 20:22] LABS: Red Cell Distribution Width 12.2 % (11.5-14.5); Segmented Neutrophils % 41.5 %
[2022-01-01 20:24] LABS: Basophils % 0.5 %; Eosinophils # 0.2 K/mcL (0.0-0.6); Eosinophils % 2.9 %; Hematocrit 42.6 % (35.3-44.9); Hemoglobin 14.1 g/dL (11.5-15.4); Immature Granulocytes % 0.3 % (0-4); Lymphocytes # 2.9 K/mcL (0.6-4.6); Lymphocytes % 49.6 %; Mean Corpuscular HGB Conc 33.1 g/dL (31.6-35.5); Mean Corpuscular Hemoglobin 31.8 pg (28.0-33.3); Mean Corpuscular Volume 96.2 fL (83.0-100.0); Mean Platelet Volume 11.1 fL (9.4-12.4); Monocytes # 0.3 K/mcL (0.0-1.3); Monocytes % 5.2 %; Neutrophils # 2.5 K/mcL (1.6-8.9); Platelet Count 116 K/mcL (140-400); Red Blood Count 4.43 M/mcL (3.82-4.97); White Blood Count 5.9 K/mcL (4.3-11.1)
[2022-01-01 20:26] LABS: BUN/Creatinine Ratio 23 (6-26); Blood Urea Nitrogen 16 mg/dL (6-20); Calcium 9.4 mg/dL (8.6-10.3); Carbon Dioxide 29 mEq/L (23-29); Chloride 103 mEq/L (98-107); Glucose 197 mg/dL (70-105); Osmolality,Calculated 297 (280-300); Potassium 3.7 mEq/L (3.5-5.1); Sodium 140 mEq/L (136-145); Troponin I < 0.03 ng/mL (< 0.04); eGFR For African Americans > 60 (> 60); eGFR For Non-African Americans > 60 (> 60)
[2022-01-01] MEDS ORDERED: Aspirin 325 MG TABLET PO ONE (21:14)
[2022-01-01] MEDS ORDERED: Aspirin 81 MG TAB.CHEW PO ONE (21:30)
[2022-01-01] MEDS ORDERED: Nitroglycerin 0.4 MG TAB.SUBL SL PRN (22:14)
[2022-01-01] MEDS ORDERED: Naloxone 0.4 MG/ML INJ IVP PRN (22:55)
[2022-01-01] MEDS ORDERED: Ondansetron 4 MG/2 ML VIAL IVP PRN (22:55)
[2022-01-01] MEDS ORDERED: Acetaminophen 325 MG TABLET PO PRN (22:55)
[2022-01-02 00:03] VITALS: TEMP 98
[2022-01-02 03:15] LABS: Chol/HDL Ratio 2.8 (0-4.9); Cholesterol 155 mg/dL (< 200); HDL Cholesterol 55 mg/dL (40-59); LDL Cholesterol,Calculated 75 mg/dL (< 100); Triglycerides 127 mg/dL (< 150)
[2022-01-02 03:17] LABS: Troponin I < 0.03 ng/mL (< 0.04)
[2022-01-02 03:34] VITALS: BP 145/73; PULSE 53; O2SAT 93
[2022-01-02] MEDS ORDERED: *HR* Dextrose 50 % in Water (Syg) 50 ML SYRINGE IVP PRN (03:38)
[2022-01-02] MEDS ORDERED: Dextrose 4 GM Chewable Tablets PO PRN ×2 (03:38)
[2022-01-02] MEDS ORDERED: D5% in Water 1,000 ML IVC PRN (03:38)
[2022-01-02 04:13] LABS: Thyroid Stimulating Hormone 4.382 mcIU/mL (0.340-5.600)
[2022-01-02] MEDS ORDERED: Insulin LISPRO 300 UNITS/3 ML VIAL SUBQ SCH (06:00)
[2022-01-02] MEDS ORDERED: Regadenoson 0.4 MG/5 ML SYRINGE IVP ONE (06:23)
[2022-01-02] MEDS ORDERED: Aspirin 81 MG TAB.CHEW PO SCH (09:00)
[2022-01-02] MEDS ORDERED: lisinopriL 10 MG TABLET PO SCH (09:00)
[2022-01-03 00:04] LABS: Estimated Average Glucose 275 mg/dl; Hemoglobin A1C 11.2 %
== END 2022-01-02 14:06 | disposition home or self-care (01) ==
LOC: EMEROOARM 19:21 → 3BNU 19:21 → SUATTDRO 22:57 → 3BNU 23:45
PROVIDERS: ADMIT Internal Medicine; ATTEND Internal Medicine